=== PATIENT | female | born 1950 ===

== ENCOUNTER 2018-12-19 16:15 | Inpatient (IN) ==
[2018-12-19] MEDS ORDERED: Sod Chloride 0.9% Inj 1,000 ML IV.CONT SCH (16:30)
[2018-12-19] MEDS ORDERED: ALTEPLASE DRIP IV.SIG ONE (16:40)
[2018-12-19] MEDS ORDERED: Alteplase Bolus 9 MG/9 ML Syringe IV.PUSH ONE (16:40)
--- NOTE | 2018-12-19 16:41 | CT ---
EXAM DATE: 12/19/2018 4:36 PM EST AGE/SEX: 68 years / Female INDICATIONS: Stroke alert left side weakness CLINICAL DATA: This is the patient's initial encounter. Patient reports that signs and symptoms have been present for 1 day and indicates a pain score of 0/10. MEDICAL/SURGICAL HISTORY: Dementia. None. RADIATION DOSE: 29.34 CTDI (mGy) COMPARISON: [facility], MR BRAIN W AND W/O CONTRAST, 06/12/2017. . TECHNIQUE: CT of the head without contrast. Using automated exposure control and adjustment of the mA and/or kV according to patient size, radiation dose was kept as low as reasonably achievable to ob tain optimal diagnostic quality images. DICOM format image data is available electronically for revi ew and comparison. FINDINGS: Cerebrum: The ventricles are normal for age. No evidence of midline shift, mass lesion, hemorrhage o r acute infarction. No extraaxial fluid collections are seen. Posterior Fossa: The cerebellum and brainstem are intact. The 4th ventricle is midline. The cerebe llopontine angle is unremarkable. Extracranial: The visualized portion of the orbits is intact. Skull: The calvaria is intact. No evidence of skull fracture. CONCLUSION: 1. No acute intracranial abnormality. Report was called by Dr. Chisholm to Dr. De Oliveira at 1630 at 9:00 PM. Electronically signed by: Jonathan Dickinson MD Board Certified Radiologist 12/19/2018 4:39 PM EST
[2018-12-19 16:42] LABS: Baso # (Auto) 0.1 th/mm3 (0.0-0.2); Eos # (Auto) 0.1 th/mm3 (0.0-0.4); Eos % (Auto) 1.5 % (0.0-4.0); Hematocrit 41.2 % (35.0-46.0); Lymph # (Auto) 2.7 th/mm3 (1.0-4.8); Lymph % (Auto) 45.6 % (9.0-44.0); Mean Corpuscular HGB Conc 33.9 % (32.0-36.0); Mean Corpuscular Hemoglobin 32.5 pg (27.0-34.0); Mean Corpuscular Volume 95.9 fL (80.0-100.0); Mean Platelet Volume 7.7 fL (7.0-11.0); Mono # (Auto) 0.5 th/mm3 (0.0-0.9); Mono % (Auto) 8.2 % (0.0-8.0); Neut # (Auto) 2.6 th/mm3 (1.8-7.7); Neut % (Auto) 43.7 % (16.0-70.0); Platelet Count 428 th/mm3 (150-450); Red Cell Distribution Width 13.6 % (11.6-17.2); White Blood Count 5.9 th/mm3 (4.0-11.0)
[2018-12-19 16:50] LABS: Activated Partial Thrombo Time 25.7 sec (23.4-31.7); Prothrombin Time 10.3 sec (9.8-11.6)
--- NOTE | 2018-12-19 16:51 | CT ---
EXAM DATE: 12/19/2018 4:46 PM EST AGE/SEX: 68 years / Female INDICATIONS: Stroke alert left side weakness CLINICAL DATA: This is the patient's initial encounter. Patient reports that signs and symptoms have been present for 1 day and indicates a pain score of 0/10. MEDICAL/SURGICAL HISTORY: Dementia. None. RADIATION DOSE: 24.26 CTDI (mGy) ; Combined studies COMPARISON: [facility] [place], CT HEAD W/O CONTRAST, 12/19/2018. . TECHNIQUE: Volumetric scanning was performed using a multi-row detector CT scanner during bolus infu guillermo of 73 ml Omnipaque 350 (iohexol) nonionic water-soluble contrast as a cumulative dose for multi ple exams. The data was post processed with a variety of visualization algorithms including full vo lume maximum intensity projection, multi-planar sliding thin slab reformation, curved planar reformat ion, and surface rendering techniques. Using automated exposure control and adjustment of the mA and /or kV according to patient size, radiation dose was kept as low as reasonably achievable to obtain o ptimal diagnostic quality images. DICOM format image data is available electronically for review and comparison. FINDINGS: There is excellent visualization of the major intracranial arteries out to the second-order branch ve ssels. There is no evidence for aneurysm, vessel truncation or stenosis, and no evidence for vascula r malformation. CONCLUSION: 1. Unremarkable head CTA exam. Specifically, no evidence for large vessel occlusion. Findings were called by Dr. Chisholm to Dr. Obando at 1648 PM. Electronically signed by: Jonathan Dickinson MD Board Certified Radiologist 12/19/2018 4:49 PM EST
[2018-12-19 16:58] LABS: Anion Gap 9 meq/L (5-15); Blood Urea Nitrogen 18 mg/dL (7-18); Calcium 9.7 mg/dL (8.5-10.1); Carbon Dioxide 28.6 meq/L (21.0-32.0); Chloride 105 meq/L (98-107); Glomerular Filtration Rate 49 mL/min (>89); Glucose,Random 91 mg/dL (74-106); Potassium 3.8 meq/L (3.5-5.1); Sodium 143 meq/L (136-145)
--- NOTE | 2018-12-19 17:00 | ED ---
HPI General Chief Complaint: Stroke Alert Stated Complaint: Stroke Alert Time Seen by Provider: 12/19/18 16:19 Source: patient and EMS Mode of arrival: EMS Limitations: no limitations History of Present Illness HPI Narrative: Patient is a 68-year-old female who self reports a possible history of dementia and no other medical problems who presents with complaint of left extremity weakness. She laid down for nap at approximately 3:00 and was normal. When she woke up later she noticed that her left upper extremity was weak and called EMS. EMS states that her arm on the left side is not acting the same as the other side and thus they called a stroke alert. Patient denies any changes in vision, speech, swallowing, numbness. Onset (ago): hour(s) Last Observed Normal: 15:00 Location: Reports left arm and left leg History of same: No Severity: moderate Quality: Reports weak Relieving factors: none Exacerbating factors: none Context: Reports sudden onset On Anticoagulants: No Associated symptoms: Reports denies other symptoms Treatments Prior to Arrival: Reports none Related Data Allergies Allergy/AdvReac Type Severity Reaction Status Date / Time No Known Allergies Allergy Verified 12/19/18 16:19 Review of Systems ROS: all other systems reviewed are negative [facility] Medical History Medical History Dementia (Acute) Social History Social History Substance History: No History of Abuse Second Hand Smoke Exposure: No Smoking Status: Former smoker How Often Do You Have a Drink Containing Alcohol: Monthly or less Recent Travel in [facility] within the Last 8 Weeks: No Recent Out of Country Travel within the Last 8 Weeks: No Immunization History Tetanus Immunization: Unsure Exam Narrative Exam Narrative: GENERAL: Well-appearing female in no acute distress, smiling SKIN: Focused skin assessment warm/dry. HEAD: Atraumatic. Normocephalic. EYES: Pupils equal and round. No scleral icterus. No injection or drainage. ENT: No nasal bleeding or discharge. Mucous membranes pink and moist. NECK: Trachea midline. No JVD. CARDIOVASCULAR: Regular rate and rhythm. No murmur appreciated. Intact and equal peripheral pulses. RESPIRATORY: No accessory muscle use. Clear to auscultation. Breath sounds equal bilaterally. GASTROINTESTINAL: Abdomen soft, non-tender, nondistended. Hepatic and splenic margins not palpable. MUSCULOSKELETAL: No obvious deformities. No clubbing. No cyanosis. No edema. NEUROLOGICAL: Awake and alert. No obvious cranial nerve deficits. Normal speech. Normal sensation. No visual field deficit. Extraocular movements intact. No ataxia. Pronator drift to a stroke scale of 2 of the left upper extremity with a drift on the scale of 1 to the left lower extremity. No weakness of the right sided extremities. PSYCHIATRIC: Appropriate mood and affect; insight and judgment normal. Course Initial Documented Vital Signs Temperature 97.7 F 12/19/18 16:19 Pulse Rate 87 12/19/18 16:19 Respiratory Rate 18 12/19/18 16:19 Blood Pressure 161/84 H 12/19/18 16:19 Pulse Oximetry 98 12/19/18 16:19 Last Documented Vital Signs Temperature 97.7 F 12/19/18 16:19 Pulse Rate 78 12/19/18 17:06 Respiratory Rate 18 12/19/18 17:06 Blood Pressure 154/76 H 12/19/18 17:06 Pulse Oximetry 100 12/19/18 17:06 Critical Care Time Critical Care Time: Yes Total Critical Care Time: 40 Attestation: Aggregate critical care time was 40 minutes. Time to perform other separately billable procedures was not included in the critical care time. My time did not include minutes spent treating any other patients simultaneously or on activities that did not directly contribute to the patient's treatment. The services I provided to this patient were to treat and/or prevent clinically significant deterioration that could result in: , disability. I provided critical care services requiring my management, as noted below: Chart data review, documentation time, medication orders and management, vital sign assessments/reviewing monitor data, ordering and reviewing lab tests, ordering and interpreting/reviewing x-rays and diagnostic studies, care of the patient and discussion of the patient with the admitting physicians. NIH Stroke Scale NIH Stroke Scale Level of Consciousness: 0-Alert Orientation Questions: 0-Answers both correct Responds to Commands: 0-Both tasks correct Gaze Eye Movement: 0-Horizontal movement WNL Visual Delgado: 0-No visual field defect Facial Movement: 0-Normal Motor Functions Arm LEFT: 0-No drift Motor Functions Arm RIGHT: 2-Falls before 10 seconds Motor Functions Leg LEFT: 0-No drift Motor Functions Leg RIGHT: 1-Drift before 5 seconds Limb Ataxia: 0-No ataxia Sensory Loss: 0-No sensory loss Best Language: 0-Normal Articulation: 0-Normal Extinction or Inattention Sensory: 0-Absent Total: 3 Medical Decision Making MDM Narrative Medical decision making narrative: Patient is a 68-year-old female who presents with left-sided numbness with last known well approximately 1-1-1/2 hours prior to arrival. NIH stroke scale on arrival was 3. Blood pressure was in the 160s over 80s. Noncontrast CT of the head was unremarkable. CTAs were also unremarkable. I discussed the case with Dr. Obando, neurologist on-call, who recommended TPA. I discussed this with the patient whom agreed. She was given TPA and at approximately 5 PM on reevaluation her symptoms had markedly improved. She will be admitted for further evaluation and management. Medical Screen Exam Complete: Yes Emergency Medical Condition: Yes Differential Diagnosis Differential Diagnosis: Differential diagnosis includes but is not limited to acute stroke, dissection, TIA. Medical Records Medical records reviewed: Yes I reviewed the patient's medical records. Lab Data Lab results reviewed: Yes I reviewed the patient's lab results. Result diagrams: 12/19/18 16:20 12/19/18 16:20 Lab Results 12/19/18 12/19/18 12/19/18 Range/Units 16:20 16:20 16:20 WBC 5.9 (4.0-11.0) th/mm3 RBC 4.30 (4.00-5.30) mil/mm3 Hgb 14.0 (11.6-15.3) gm/dL POC Hgb (Calc) (11.6-15.3) g/dL Hct 41.2 (35.0-46.0) % POC Hct (35-46.0) % MCV 95.9 (80.0-100.0) fL MCH 32.5 (27.0-34.0) pg MCHC 33.9 (32.0-36.0) % RDW 13.6 (11.6-17.2) % Plt Count 428 (150-450) th/mm3 MPV 7.7 (7.0-11.0) fL Neut % (Auto) 43.7 (16.0-70.0) % Lymph % (Auto) 45.6 H (9.0-44.0) % [place] % (Auto) 8.2 H (0.0-8.0) % Eos % (Auto) 1.5 (0.0-4.0) % Baso % (Auto) 1.0 (0.0-2.0) % Neut # (Auto) 2.6 (1.8-7.7) th/mm3 Lymph # (Auto) 2.7 (1.0-4.8) th/mm3 [place] # (Auto) 0.5 (0.0-0.9) th/mm3 Eos # (Auto) 0.1 (0.0-0.4) th/mm3 Baso # (Auto) 0.1 (0.0-0.2) th/mm3 WBC Differential . Differential Comment Auto diff final PT 10.3 (9.8-11.6) sec INR 1.0 Ratio APTT 25.7 (23.4-31.7) sec POC Sodium (137-144) mmol/L Sodium 143 (136-145) meq/L POC Potassium (3.6-5.0) mmol/L Potassium 3.8 (3.5-5.1) meq/L POC Chloride (102-111) mmol/L Chloride 105 (98-107) meq/L Carbon Dioxide 28.6 (21.0-32.0) meq/L Anion Gap 9 (5-15) meq/L POC BUN (5-21) mg/dL BUN 18 (7-18) mg/dL Creatinine 1.12 H (0.50-1.00) mg/dL POC Creatinine (0.6-1.3) mg/dL Estimated GFR 49 L (>89) mL/min POC Glucose (68-110) mg/dL Random Glucose 91 (74-106) mg/dL Calcium 9.7 (8.5-10.1) mg/dL Total Creatine Kinase 44 (26-192) U/L Troponin I Less than 0.02 L (0.02-0.05) ng/mL 12/19/18 Range/Units 16:20 WBC (4.0-11.0) th/mm3 RBC (4.00-5.30) mil/mm3 Hgb (11.6-15.3) gm/dL POC Hgb (Calc) 13.9 (11.6-15.3) g/dL Hct (35.0-46.0) % POC Hct 41.0 (35-46.0) % MCV (80.0-100.0) fL MCH (27.0-34.0) pg MCHC (32.0-36.0) % RDW (11.6-17.2) % Plt Count (150-450) th/mm3 MPV (7.0-11.0) fL Neut % (Auto) (16.0-70.0) % Lymph % (Auto) (9.0-44.0) % [place] % (Auto) (0.0-8.0) % Eos % (Auto) (0.0-4.0) % Baso % (Auto) (0.0-2.0) % Neut # (Auto) (1.8-7.7) th/mm3 Lymph # (Auto) (1.0-4.8) th/mm3 [place] # (Auto) (0.0-0.9) th/mm3 Eos # (Auto) (0.0-0.4) th/mm3 Baso # (Auto) (0.0-0.2) th/mm3 WBC Differential Differential Comment PT (9.8-11.6) sec INR Ratio APTT (23.4-31.7) sec POC Sodium 142 (137-144) mmol/L Sodium (136-145) meq/L POC Potassium 3.7 (3.6-5.0) mmol/L Potassium (3.5-5.1) meq/L POC Chloride 101 L (102-111) mmol/L Chloride (98-107) meq/L Carbon Dioxide (21.0-32.0) meq/L Anion Gap (5-15) meq/L POC BUN 18 (5-21) mg/dL BUN (7-18) mg/dL Creatinine (0.50-1.00) mg/dL POC Creatinine 1.1 (0.6-1.3) mg/dL Estimated GFR (>89) mL/min POC Glucose 91 (68-110) mg/dL Random Glucose (74-106) mg/dL Calcium (8.5-10.1) mg/dL Total Creatine Kinase (26-192) U/L Troponin I (0.02-0.05) ng/mL Imaging Data Attestation: I personally reviewed and interpreted this imaging study as follows : Radiologist's impression: Chest X-Ray 12/19/18 16:19 CONCLUSION: No acute cardiopulmonary disease identified. Head CT 12/19/18 16:19 CONCLUSION: 1. No acute intracranial abnormality. Report was called by Dr. Chisholm to Dr. De Oliveira at 1630 at 9:00 PM. Head CTA 12/19/18 16:27 CONCLUSION: 1. Unremarkable head CTA exam. Specifically, no evidence for large vessel occlusion. Findings were called by Dr. Chisholm to Dr. Obando at 1648 PM. Neck CTA 12/19/18 16:27 CONCLUSION: CTA of the neck within normal limits. Discharge Plan Discharge Disposition Patient Disposition: ED Admit(ED Internal Use Only) Discharge Condition Condition: Fair Discharge Order Discharge Orders: ED Use Only Admit Order (Routine); Ordered 12/19/18 Ordered By: Cira De Oliveira Discharge Details Diagnosis: Acute ischemic stroke Physicians Team ED Provider: Cira De Oliveira Primary Care Provider: Primary Care [facility],No Status ED Status: Pending Admission
--- NOTE | 2018-12-19 17:01 | XR ---
EXAM DATE: 12/19/2018 4:58 PM EST AGE/SEX: 68 years / Female INDICATIONS: Cardiac disease. CLINICAL DATA: This is the patient's initial encounter. Patient reports that signs and symptoms have been present for 1 day and indicates a pain score of Nonresponsive. MEDICAL/SURGICAL HISTORY: Dementia. Non-responsive. COMPARISON: No prior exams available for comparison. FINDINGS: Single AP view of the chest. The lungs are clear. Cardiomediastinal silhouette within norm al limits. No evidence of pleural effusion or pneumothorax. CONCLUSION: No acute cardiopulmonary disease identified. Electronically signed by: Dallas Olivares MD Board Certified Radiologist 12/19/2018 4:59 PM EST
[2018-12-19 17:08] LABS: Creatine Kinase 44 U/L (26-192)
[2018-12-19] MEDS ORDERED: Dextrose 50% in Water 50 ML Vial IV.PUSH PRN (17:25)
--- NOTE | 2018-12-19 17:25 | CT ---
EXAM DATE: 12/19/2018 5:20 PM EST AGE/SEX: 68 years / Female INDICATIONS: Stroke alert left side weakness CLINICAL DATA: This is the patient's initial encounter. Patient reports that signs and symptoms have been present for 1 day and indicates a pain score of 0/10. MEDICAL/SURGICAL HISTORY: Dementia. None. RADIATION DOSE: 24.26 CTDI (mGy) COMPARISON: No prior exams available for comparison. TECHNIQUE: Volumetric scanning was performed using a multirow detector CT scanner during bolus infus ion of 73 ml Omnipaque 350 (iohexol) nonionic water-soluble contrast as a cumulative dose for multip le exams. The data was postprocessed with a variety of visualization algorithms including full-volu me maximum intensity projection, multiplanar sliding thin-slab reformation, curved-planar reformation , and surface-rendering techniques. Using automated exposure control and adjustment of the mA and/or kV according to patient size, radiation dose was kept as low as reasonably achievable to obtain opti mal diagnostic quality images. DICOM format image data is available electronically for review and co mparison. Percent stenosis is calculated using the diameter of the stenotic region over the diameter of the nor mal distal internal carotid artery. FINDINGS: Aortic Arch: There is a three-vessel origin of the great vessels from the aorta. No evidence of ost ial narrowing Right Carotid: The common carotid artery is intact. The carotid bulb has a normal configuration wit hout ulceration or narrowing. The internal carotid artery lumen is smooth without stenosis. The ext ernal carotid artery is intact. Left Carotid: The common carotid artery is intact. The carotid bulb has a normal configuration with out ulceration or narrowing. The internal carotid artery lumen is smooth without stenosis. The exte rnal carotid artery is intact. Vertebrals: Left vertebral artery is dominant.. No stenotic lesions are seen. CONCLUSION: CTA of the neck within normal limits. Electronically signed by: Dallas Olivares MD Board Certified Radiologist 12/19/2018 5:24 PM EST
--- NOTE | 2018-12-19 17:55 | MB ---
cc: Krishan Obando MD, PhD DATE: 12/19/2018 REASON FOR CONSULTATION: Stroke alert. HISTORY OF PRESENT ILLNESS: Ms. Lozano is a 68-year-old female who has a history of dementia, but no other past medical history. She took a nap around 3 p.m. this afternoon, that was when she was last normal. When she awoke about an hour and half before arrival to the ER, she noted left-sided weakness of the arm and leg, presented to the hospital where symptoms persisted. She presented as a stroke alert. She has no prior history of stroke or TIA. She is not on any anticoagulation. PAST MEDICAL HISTORY: Remarkable for dementia. MEDICATIONS AT HOME: Namenda. PHYSICAL EXAMINATION: VITAL SIGNS: Blood pressure 161/84, pulse 87. She is in normal sinus rhythm, respirations 18, temperature is 97.7 degrees Fahrenheit. NEUROLOGIC: Higher cortical function: Alert, oriented x3. Follows commands. Speech is normal with normal fluency. Cranial nerves intact. Motor exam: She is weak in the left arm and left leg, both rated at 4/5 with diminished fine motor skills in the left hand. Sensory: Intact. Reflexes 2+ symmetric with no Babinski. IMAGING DATA: CT of the brain, no acute change. CT angiogram of the head and neck, both within normal limits. No evidence of any large vessel occlusion. LABORATORY DATA: White count 5900, hemoglobin 14, hematocrit 41.7%, platelets 128,000. Sodium is 142, potassium 3.7, chloride 101, CO2 is 28.6, BUN is 18, creatinine 1.12, glucose is 91. GFR is 49. PT 10.3, INR 1, aPTT 25.7. IMPRESSION: 1. Acute right hemisphere stroke. I discussed the case with Dr. De Oliveira. The patient is a candidate for IV tPA. Her NIH stroke scale is 3. TPA has already been started as soon as the CT came back negative for hemorrhage. We will recommend following the post-tPA order sets with close neuro checks, obtaining a post-tPA CT scan of the brain 24 hours after TPA is administered. Avoid any antiplatelets or anticoagulants for 24 hours. Also obtain an MRI of the brain, echocardiogram. Monitor cardiac telemetry. Rule out atrial fibrillation. We will also check a lipid panel. Krishan Oabndo MD, PhD LACIE/merary , 05:07 PM , 05:13 PM
--- NOTE | 2018-12-19 17:55 | P.HPIM ---
History of Present Illness Primary Care Physician: No Primary Care Physician Chief Complaint: stroke alert, left arm weakness History of Present Illness: Patient is a 68-year-old female who self reports a possible history of dementia and no other medical problems who presents with complaint of left extremity weakness. She laid down for nap at approximately 3: 00 and was normal. When she woke up later she noticed that her left upper extremity was weak and called EMS. EMS states that her arm on the left side is not acting the same as the other side and thus they called a stroke alert. Patient denies any changes in vision, speech, swallowing, numbness. at bedside also witnessed episode of weakness and says patient was not able to move her left hand at home. Patient came as stroke alert. Neurology consulted. Patient had TPA administered. Improved significantly after TPA. Normal speech and slight weakness and mild pronator drift on left hand. Inpatient Certification Inpatient Certification: I certify that the inpatient services were ordered in accordance with Medicare regulations governing the order. This includes certification that hospital inpatient services are reasonable and necessary and in the case of services not specified as inpatient-only under 42 CFR 419.22(n), that they are appropriately provided as inpatient services in accordance to with the 2-midnight benchmark under 43 CFR 412.3(e) Estimated Total Length of Stay (Days): 3 Plans for Post Hospital Care: Home Review of Systems Review of Systems: all other systems reviewed are negative [facility] Medical History Medical History Dementia (Acute) H/O: hysterectomy (Acute) Family History Family History Other ETOH abuse Social History Social History Substance History: No History of Abuse Second Hand Smoke Exposure: No Smoking Status: Former smoker How Often Do You Have a Drink Containing Alcohol: Monthly or less Recent Travel in [facility] within the Last 8 Weeks: No Recent Out of Country Travel within the Last 8 Weeks: No Immunization History Tetanus Immunization: Unsure Medications and Allergies Allergies Allergy/AdvReac Type Severity Reaction Status Date / Time No Known Allergies Allergy Verified 12/19/18 16:19 Active Medications: Active Medications Dextrose (D50w Vial) 50 ml IV.PUSH UNSCH PRN PRN Reason: PER HYPOGLYCEMIA PROTOCOL Glucagon (Glucagon Inj) 1 mg OTHER UNSCH PRN PRN Reason: for Hypoglycemia Protocol Sodium Chloride (Ns Inj) 1,000 mls @ 70 mls/hr IV.CONT .[id number] [facility] Stop: 12/20/18 06:47 Last Admin: 12/19/18 16:30 Dose: 70 mls/hr Pravastatin Sodium (Pravachol) 40 mg PO HS KISHAN Sodium Chloride (Ns Flush) 2 ml IV.FLUSH PRN PRN PRN Reason: FLUSH AFTER USING IV ACCESS Sodium Chloride (Ns Flush) 2 ml IV.FLUSH BID KISHAN Sodium Chloride (Ns Flush) 2 ml IV.FLUSH PRN PRN PRN Reason: FLUSH AFTER USING IV ACCESS Physical Exam Vital signs: Vital Signs 12/19/18 16:19 12/19/18 16:37 12/19/18 16:52 Temperature 97.7 F Pulse Rate 80 88 95 H Respiratory Rate 18 16 16 Blood Pressure 161/84 H 142/84 H 159/71 H Pulse Oximetry 100 100 100 12/19/18 17:06 Temperature Pulse Rate 78 Respiratory Rate 18 Blood Pressure 154/76 H Pulse Oximetry 100 Intake & Output 12/18/18 12/19/18 12/19/18 18:59 06:59 18:59 Weight 60.2 kg Narrative: GENERAL: 68 yo female, well nourished, well developed patient appears in nad. SKIN: Warm and dry. HEAD: Atraumatic. Normocephalic. EYES: Pupils equal and round. No scleral icterus. No injection or drainage. ENT: No nasal bleeding or discharge. Mucous membranes pink and moist. NECK: Trachea midline. No JVD. CARDIOVASCULAR: Regular rate and rhythm. RESPIRATORY: No accessory muscle use. Clear to auscultation. Breath sounds equal bilaterally. GASTROINTESTINAL: Abdomen soft, non-tender, nondistended. Hepatic and splenic margins not palpable. MUSCULOSKELETAL: Extremities without clubbing, cyanosis, or edema. No obvious deformities. NEUROLOGICAL: Awake and alert. No obvious cranial nerve deficits. Motor grossly within normal limits. Left arm pronator drift. Normal speech. PSYCHIATRIC: Appropriate mood and affect; insight and judgment normal. Results Labs CBC & Chem 7: 12/19/18 16:20 12/19/18 16:20 Imaging Impressions Chest X-Ray 12/19/18 16:19 CONCLUSION: No acute cardiopulmonary disease identified. Head CT 12/19/18 16:19 CONCLUSION: 1. No acute intracranial abnormality. Report was called by Dr. Chisholm to Dr. De Oliveira at 1630 at 9:00 PM. Head CTA 12/19/18 16:27 CONCLUSION: 1. Unremarkable head CTA exam. Specifically, no evidence for large vessel occlusion. Findings were called by Dr. Chisholm to Dr. Obando at 1648 PM. Neck CTA 12/19/18 16:27 CONCLUSION: CTA of the neck within normal limits. Caprini VTE Risk Assessment Caprini VTE Risk Assessment: Moderate/High Risk (score >= 2) Caprini Risk Assessment Model: Point Value = 1 Point Value = 2 Point Value = 3 Point Value = 5 Age 41-60 Minor surgery BMI > 25 kg/m2 Swollen legs Varicose veins or History of unexplained or recurrent spontaneous Oral contraceptives or hormone replacement Sepsis (< 1 month) Serious lung disease, including pneumonia (< 1 month) Abnormal pulmonary function Acute myocardial infarction Congestive heart failure (< 1 month) History of inflammatory bowel disease Medical patient at bed rest Age 61-74 Arthroscopic surgery Major open surgery (> 45 min) Laparoscopic surgery (> 45 min) Malignancy Confined to bed (> 72 hours) Immobilizing plaster cast Central venous access Age >= 75 History of VTE Family history of VTE Factor V Leiden Prothrombin [id number] Lupus anticoagulant Anticardiolipin antibodies Elevated serum homocysteine Heparin-induced thrombocytopenia Other congenital or acquired thrombophilia Stroke (< 1 month) Elective arthroplasty Hip, pelvis, or leg fracture Acute spinal cord injury (< 1 month) Prophylaxis Regimen: Total Risk Factor Score Risk Level Prophylaxis Regimen 0-1 Low Early ambulation 2 Moderate Order ONE of the following: *Sequential Compression Device (SCD) *Heparin 5000 units SQ BID 3-4 Higher Order ONE of the following medications: *Heparin 5000 units SQ TID *Enoxaparin/Lovenox 40 mg SQ daily (WT < 150 kg, CrCl > 30 mL/min) *Enoxaparin/Lovenox 30 mg SQ daily (WT < 150 kg, CrCl > 10-29 mL/min) *Enoxaparin/Lovenox 30 mg SQ BID (WT < 150 kg, CrCl > 30 mL/min) AND/OR *Sequential Compression Device (SCD) 5 or more Highest Order ONE of the following medications: *Heparin 5000 units SQ TID (Preferred with Epidurals) *Enoxaparin/Lovenox 40 mg SQ daily (WT < 150 kg, CrCl > 30 mL/min) *Enoxaparin/Lovenox 30 mg SQ daily (WT < 150 kg, CrCl > 10-29 mL/min) *Enoxaparin/Lovenox 30 mg SQ BID (WT < 150 kg, CrCl > 30 mL/min) AND *Sequential Compression Device (SCD) Assessment and Plan Plan Patient is a 68-year-old female with h/o dementia, who presents with left-sided numbness with last known well approximately 1-1-1/2 hours prior to arrival. NIH stroke scale on arrival was 3. Blood pressure was in the 160s over 80s. Noncontrast CT of the head was unremarkable. CTAs were also unremarkable. Neurology was consulted, Dr. Obando, who recommended TPA. Patient agreed and she was given TPA and at approximately 5 PM on reevaluation her symptoms had markedly improved. She is admitted for further evaluation and management. CVA. The patient presented with left arm weakness and left pronator drift. H/o dementia on namenda , doesn't know the dose will do reconcile meds restart home meds CT head and CTA neck unremarkable Dr Obando neuro recommended TPA, patient received TPA with marked improvement in symptoms thereafter Admit to the floor for close eval and observation Allow permissive HTN, neurochecks Q2 hrs, monitor closely Monitor on tele Check a1c, lipid profile ASA and statin per neuro recommendations restart BP meds Restart ilan meds , do reconcile home meds DVT ppx scd/teds, received TPA hold on chemical ppx for now Discussed Condition With: patient, family- at bedside, nurse
[2018-12-19 18:13] LABS: Bilirubin,Urine Negative (Negative); Clarity,Urine Clear (Clear); Color,Urine Straw (Yellw/Straw); Glucose,Urine (UA) Negative (Negative); Leukocyte Esterase,Urine Trace (Negative); Nitrite,Urine Negative (Negative); Specific Gravity,Urine 1.018 (1.002-1.035); Squamous Epithelial Cell,Urine <1 /hpf (0-5)
[2018-12-19 18:25] LABS: Chol/HDL Ratio 2.84 Ratio; HDL Cholesterol 73.8 mg/dL (40.0-60.0)
[2018-12-19] MEDS ORDERED: Gadobutrol PF 7.5 MMOL/7.5 ML Vial (for RAD) IV.SIG ONE (21:54)
--- NOTE | 2018-12-19 22:04 | MR ---
EXAM DATE: 12/19/2018 9:56 PM EST AGE/SEX: 68 years / Female INDICATIONS: CVA. Left side weakness. CLINICAL DATA: This is the patient's initial encounter. Patient reports that signs and symptoms have been present for 1 day and indicates a pain score of 0/10. MEDICAL/SURGICAL HISTORY: Dementia. Hysterectomy. COMPARISON: [facility], MR BRAIN W AND W/O CONTRAST, 06/12/2017. . TECHNIQUE: Multiplanar, multisequence examination of the brain was performed without and with 5 ml Ga davist (gadobutrol) contrast as a single exam dose. FINDINGS: Cerebrum: The ventricles are normal for age. No evidence of midline shift, mass lesion, hemorrhage or acute infarction. No extraaxial fluid collections are seen. The pituitary gland and suprasellar cistern are normal in configuration. White Matter: No significant signal abnormalities are seen in the white matter. Posterior Fossa: The cerebellum and brainstem are intact. The 4th ventricle is midline. The cerebel lopontine angle is unremarkable. The cerebellar tonsils are normal in position. Diffusion Imaging: There is a 9 mm focus of restricted diffusion involving the centrum semiovale bow el on the right. This area shows loss of signal on the ADC map.. Extracranial: The visualized portions of the orbits and paranasal sinuses are unremarkable. Post Contrast: No abnormal areas of parenchymal or dural enhancement. No evidence of blood-brain ba rrier breakdown. CONCLUSION: 1. Small acute lacunar infarction involving the centrum semiovale bowel on the right. Electronically signed by: Tylor Sanders MD Board Certified Radiologist 12/19/2018 10:03 PM EST
[2018-12-20 06:31] LABS: Chol/HDL Ratio 2.63 Ratio; HDL Cholesterol 74.3 mg/dL (40.0-60.0)
--- NOTE | 2018-12-20 10:04 | P.PNIM ---
Subjective Interval history: In bed appears in nad. Denies chest pain or sob, no fever or chills. Patient with headache. Motor deficit imprpved significantly. Not having much appetite, passed swallow eval Physical Exam Vital signs: Vital Signs 12/19/18 16:19 12/19/18 16:37 12/19/18 16:52 Temperature 97.7 F Pulse Rate 80 88 95 H Respiratory Rate 18 16 16 Blood Pressure 161/84 H 142/84 H 159/71 H Pulse Oximetry 100 100 100 12/19/18 17:06 12/19/18 17:16 12/19/18 17:47 Temperature Pulse Rate 78 Respiratory Rate 18 Blood Pressure 154/76 H Pulse Oximetry 100 99 97 12/19/18 18:19 12/19/18 18:21 12/19/18 18:22 Temperature Pulse Rate Respiratory Rate Blood Pressure 154/81 H Pulse Oximetry 99 99 12/19/18 18:59 12/19/18 19:00 12/19/18 19:15 Temperature 98.6 F Pulse Rate 83 87 83 Respiratory Rate 20 18 18 Blood Pressure 132/85 128/79 Pulse Oximetry 98 98 97 12/19/18 19:30 12/19/18 19:45 12/19/18 20:00 Temperature 97.8 F Pulse Rate 79 76 71 Respiratory Rate 18 20 16 Blood Pressure 128/75 132/79 127/79 Pulse Oximetry 97 98 98 12/19/18 20:15 12/19/18 20:21 12/19/18 20:30 Temperature Pulse Rate 72 72 Respiratory Rate 26 H 23 Blood Pressure 150/72 H 137/81 Pulse Oximetry 99 98 99 12/19/18 20:45 12/19/18 21:00 12/19/18 21:15 Temperature Pulse Rate 75 82 72 Respiratory Rate 32 H 37 H 33 H Blood Pressure 141/85 H 132/74 127/74 Pulse Oximetry 98 98 96 12/19/18 22:11 12/19/18 22:17 12/19/18 22:40 Temperature Pulse Rate 71 72 74 Respiratory Rate 15 17 20 Blood Pressure 139/86 149/85 H Pulse Oximetry 96 12/19/18 23:00 12/19/18 23:10 12/19/18 23:40 Temperature Pulse Rate 74 73 74 Respiratory Rate 24 18 17 Blood Pressure 137/85 138/80 Pulse Oximetry 96 95 96 12/20/18 00:00 12/20/18 00:10 12/20/18 00:40 Temperature Pulse Rate 76 71 77 Respiratory Rate 16 22 15 Blood Pressure 150/75 H 140/84 Pulse Oximetry 97 96 96 12/20/18 01:00 12/20/18 01:10 12/20/18 01:40 Temperature Pulse Rate 67 68 66 Respiratory Rate 17 14 17 Blood Pressure 130/82 154/75 H Pulse Oximetry 96 96 96 12/20/18 02:00 12/20/18 02:10 12/20/18 02:40 Temperature Pulse Rate 67 66 68 Respiratory Rate 16 15 17 Blood Pressure 132/76 157/75 H Pulse Oximetry 97 98 97 12/20/18 03:00 12/20/18 03:10 12/20/18 03:40 Temperature Pulse Rate 74 67 66 Respiratory Rate 15 30 H 14 Blood Pressure 141/71 H 152/76 H Pulse Oximetry 98 96 96 12/20/18 04:00 12/20/18 04:10 12/20/18 04:40 Temperature 98.5 F Pulse Rate 69 68 80 Respiratory Rate 24 14 37 H Blood Pressure 154/84 H 150/86 H Pulse Oximetry 97 97 97 12/20/18 05:00 12/20/18 05:10 12/20/18 05:40 Temperature Pulse Rate 71 70 72 Respiratory Rate 14 18 13 Blood Pressure 153/85 H 158/82 H Pulse Oximetry 96 97 96 12/20/18 06:00 12/20/18 06:10 12/20/18 07:00 Temperature Pulse Rate 76 75 81 Respiratory Rate 14 14 20 Blood Pressure 149/73 H Pulse Oximetry 96 95 96 12/20/18 07:10 12/20/18 07:19 12/20/18 07:40 Temperature 98.9 F Pulse Rate 85 87 74 Respiratory Rate 20 20 22 Blood Pressure 185/93 H 152/74 H 157/74 H Pulse Oximetry 96 96 96 12/20/18 07:41 12/20/18 08:00 12/20/18 08:10 Temperature Pulse Rate 80 82 Respiratory Rate 20 20 Blood Pressure 159/92 H Pulse Oximetry 96 97 98 12/20/18 09:00 12/20/18 09:01 Temperature Pulse Rate 76 76 Respiratory Rate 20 20 Blood Pressure 142/88 H Pulse Oximetry 98 98 Intake & Output 12/19/18 12/20/18 12/20/18 18:59 06:59 18:59 Intake Total 49 1000 / 1000 Balance 49 49 1000 / 1000 Weight 60.2 kg 60.18 kg Intake: IV 49 1000 / 1000 NS Inj 1,000 ML @ 70 mls/hr IV. 1000 / 1000 CONT .[id number] KISHAN Rx#:[id number] Activase Drip 49 MG In Bag/ Syringe 1 EACH @ 49 mls/hr IV. SIG ONCE ONE Rx#:[id number] Other: Date of Last Bowel Movement 12/19/18 Weight On Admission 60.2 kg Narrative: GENERAL: 68 yo female, well nourished, well developed patient appears in nad. CARDIOVASCULAR: Regular rate and rhythm. RESPIRATORY: No accessory muscle use. Clear to auscultation. Breath sounds equal bilaterally. GASTROINTESTINAL: Abdomen soft, non-tender, nondistended. Hepatic and splenic margins not palpable. MUSCULOSKELETAL: Extremities without clubbing, cyanosis, or edema. No obvious deformities. NEUROLOGICAL: Awake and alert. No obvious cranial nerve deficits. Motor grossly within normal limits. Left arm pronator drift. Normal speech. PSYCHIATRIC: Appropriate mood and affect; insight and judgment normal. Results Labs CBC & Chem 7: 12/19/18 16:20 12/19/18 16:20 Imaging Imaging: Impressions Head MRI 12/19/18 00:00 CONCLUSION: 1. Small acute lacunar infarction involving the centrum semiovale bowel on the right. Chest X-Ray 12/19/18 16:19 CONCLUSION: No acute cardiopulmonary disease identified. Head CT 12/19/18 16:19 CONCLUSION: 1. No acute intracranial abnormality. Report was called by Dr. Chisholm to Dr. De Oliveira at 1630 at 9:00 PM. Head CTA 12/19/18 16:27 CONCLUSION: 1. Unremarkable head CTA exam. Specifically, no evidence for large vessel occlusion. Findings were called by Dr. Chisholm to Dr. Obando at 1648 PM. Neck CTA 12/19/18 16:27 CONCLUSION: CTA of the neck within normal limits. Assessment and Plan Plan Patient is a 68-year-old female with h/o dementia, who presents with left-sided numbness with last known well approximately 1-1-1/2 hours prior to arrival. NIH stroke scale on arrival was 3. Blood pressure was in the 160s over 80s. Noncontrast CT of the head was unremarkable. CTAs were also unremarkable. Neurology was consulted, Dr. Obando, who recommended TPA. Patient agreed and she was given TPA and at approximately 5 PM on reevaluation her symptoms had markedly improved. She is admitted for further evaluation and management. CVA. The patient presented with left arm weakness and left pronator drift. H/o dementia on namenda , restarted CT head and CTA neck unremarkable Dr Obando neuro recommended TPA, patient received TPA with marked improvement in symptoms thereafter Admit to the floor for close eval and observation Allow permissive HTN, neurochecks Q2 hrs, monitor closely Monitor on tele Check a1c, lipid profile ASA and statin per neuro recommendations restart BP meds Restart ilan meds , do reconcile home meds Start statin , start ASA when cleared by neuro Headache tylenol prn, avoid NSAIDS DVT ppx scd/teds, received TPA hold on chemical ppx for now start per neuro recs Discussed with the patient, family at bedside, nurse Progress Note: Quality VTE Deep Vein Thrombosis/Pulmonary Embolism Present on Admission: No
[2018-12-20] MEDS: Acetaminophen 325 MG Tablet PO PRN ×2 (10:37→20:00)
--- NOTE | 2018-12-20 11:21 | ECG ---
Date Performed: 12/19/2018 Time Performed: 16:52:57 PTAGE: 68 years EKG: Sinus rhythm NORMAL ECG NO PREVIOUS TRACING DOCTOR: Rafa Blanca Interpretating Date/Time 12/20/2018 11:18:40
--- NOTE | 2018-12-20 15:52 | ECHRPT ---
Indication: CVA/TIA CONCLUSIONS Normal left ventricular size. Wall thickness is normal. The left ventricular systolic function is grossly normal on limited imaging. Cfhli-cw-yzrt mitral valve regurgitation. Aortic valve sclerosis is present. Iciz-bt-yplawqiv aortic valve regurgitation. The estimated pulmonary arterial pressure is 37.2 mmHg. There is moderate tricuspid regurgitation. BP: / HR: Rhythm: Sinus MEASUREMENTS (Male / Female) Normal Values Technical Quality:Fair 2D ECHO LV Diastolic Diameter PLAX 4.3 cm 4.2 - 5.9 / 3.9 - 5.3 cm LV Systolic Diameter PLAX 2.5 cm IVS Diastolic Thickness 0.7 cm 0.6 - 1.0 / 0.6 - 0.9 cm LVPW Diastolic Thickness 0.7 cm 0.6 - 1.0 / 0.6 - 0.9 cm LV Relative Wall Thickness 0.3 RV Internal Dim ED PLAX 2.5 cm LVOT Diameter 2.2 cm Aortic Root Diameter 3.6 cm LA Systolic Diameter LX 2.5 cm 3.0 - 4.0 / 2.7 - 3.8 cm M-MODE AV Cusp Separation MM 1.5 cm DOPPLER AI Peak Velocity 489.0 cm/s AI Peak Gradient 95.6 mmHg AI Pressure Half Time 484.0 ms LVOT Peak Velocity 113.0 cm/s LVOT Peak Gradient 5.1 mmHg LVOT Velocity Time Integral 17.2 cm Mitral E Point Velocity 55.3 cm/s Mitral A Point Velocity 78.5 cm/s Mitral E to A Ratio 0.7 LV E' Lateral Velocity 8.9 cm/s Mitral E to LV E' Lateral Ratio 6.2 LV E' Septal Velocity 8.3 cm/s Mitral E to LV E' Septal Ratio 6.7 TR Peak Velocity 261.0 cm/s TR Peak Gradient 27.2 mmHg Right Atrial Pressure 10.0 mmHg Pulmonary Artery Systolic Pressu 37.2 mmHg Right Ventricular Systolic Press 37.2 mmHg PV Peak Velocity 69.9 cm/s PV Peak Gradient 2.0 mmHg FINDINGS LEFT VENTRICLE Normal left ventricular size. Wall thickness is normal. The left ventricular systolic function is grossly normal on limited imaging. RIGHT VENTRICLE Normal right ventricular size and systolic function. LEFT ATRIUM The left atrial size is normal. RIGHT ATRIUM The right atrial size is normal. ATRIAL SEPTUM Normal atrial septal thickness without atrial level shunting by limited color doppler interrogation. AORTA The aortic root and proximal ascending aorta are normal in size on limited imaging. MITRAL VALVE Idvoz-mw-eade mitral valve regurgitation. AORTIC VALVE Aortic valve sclerosis is present. Jpwf-hy-wiywqcit aortic valve regurgitation. TRICUSPID VALVE The estimated pulmonary arterial pressure is 37.2 mmHg. There is moderate tricuspid regurgitation. PULMONARY VALVE No pulmonary valve regurgitation or stenosis. VESSELS The inferior vena cava is normal in size. PERICARDIUM No pericardial effusion. John Smith MD, FACC (Electronically Signed) Final Date:20 December 2018 15:51
[2018-12-20 16:12] LABS: Hemoglobin A1c 5.6 % (4.3-6.0)
--- NOTE | 2018-12-20 17:36 | CT ---
EXAM DATE: 12/20/2018 5:32 PM EST AGE/SEX: 68 years / Female INDICATIONS: Post TPA stroke alert. CLINICAL DATA: This is the patient's subsequent encounter. Patient reports that signs and symptoms h ave been present for 2 days and indicates a pain score of 4/10. MEDICAL/SURGICAL HISTORY: None. Hysterectomy. RADIATION DOSE: 45.70 CTDI (mGy) COMPAR[place]: [facility] [place], [place]19/2018. [facility] [place] & W/O CONTRAST, 12/19/2018. . TECHNIQUE: CT of the head without contrast. Using automated exposure control and adjustment of the mA and/or kV according to patient size, radiation dose was kept as low as reasonably achievable to ob tain optimal diagnostic quality images. DICOM format image data is available electronically for revi ew and comparison. FINDINGS: Cerebrum: No evidence of acute hemorrhage. There is some hypodensity in the anterior sylvian region with loss of delineation between ballesteros and white matter. There is no restricted diffusion in this area on yesterday's MR. No evidence of mass effect. No extra-axial fluid. Posterior Fossa: The cerebellum and brainstem are intact. The 4th ventricle is midline. The cerebe llopontine angle is unremarkable. Extracranial: The visualized portion of the orbits is intact. Skull: The calvaria is intact. No evidence of skull fracture. CONCLUSION: 1. No evidence of acute hemorrhage. 2. Interval development of mild hypodensity with loss of ballesteros/white matter differentiation in the an terior right sylvian region, possibly an evolving infarction. . Electronically signed by: Tylor Juarez MD Board Certified Radiologist 12/20/2018 5:35 PM EST
--- NOTE | 2018-12-20 18:23 | P.PNNEU ---
Subjective Subjective Comments: pt reports improvement in left sided strength back to normal Active Medications: Active Medications Acetaminophen (Tylenol) 650 mg PO Q4H PRN PRN Reason: fever/headache Last Admin: 12/20/18 10:37 Dose: 650 mg Aspirin (Aspirin) 325 mg PO DAILY [facility] Dextrose (D50w Vial) 50 ml IV.PUSH UNSCH PRN PRN Reason: PER HYPOGLYCEMIA PROTOCOL Enalaprilat (Vasotec Inj) 2.5 mg IV.PUSH Q6H PRN PRN Reason: SBP>180, DBP>110 Glucagon (Glucagon Inj) 1 mg OTHER UNSCH PRN PRN Reason: for Hypoglycemia Protocol Memantine (Namenda) 10 mg PO BID [facility] Last Admin: 12/20/18 11:30 Dose: 10 mg Pravastatin Sodium (Pravachol) 40 mg PO HS [facility] Last Admin: 12/19/18 20:03 Dose: 40 mg Sodium Chloride (Ns Flush) 2 ml IV.FLUSH PRN PRN PRN Reason: FLUSH AFTER USING IV ACCESS Sodium Chloride (Ns Flush) 2 ml IV.FLUSH BID [facility] Last Admin: 12/20/18 09:11 Dose: Not Given Sodium Chloride (Ns Flush) 2 ml IV.FLUSH PRN PRN PRN Reason: FLUSH AFTER USING IV ACCESS Allergies/Adverse Reactions: Allergies Allergy/AdvReac Type Severity Reaction Status Date / Time No Known Allergies Allergy Verified 12/19/18 16:19 Physical Exam Vital signs: Vital Signs 12/19/18 18:21 12/19/18 18:22 12/19/18 18:59 Temperature 98.6 F Pulse Rate 83 Respiratory Rate 20 Blood Pressure 154/81 H 132/85 Pulse Oximetry 99 98 12/19/18 19:00 12/19/18 19:15 12/19/18 19:30 Temperature Pulse Rate 87 83 79 Respiratory Rate 18 18 18 Blood Pressure 128/79 128/75 Pulse Oximetry 98 97 97 12/19/18 19:45 12/19/18 20:00 12/19/18 20:15 Temperature 97.8 F Pulse Rate 76 71 72 Respiratory Rate 20 16 26 H Blood Pressure 132/79 127/79 150/72 H Pulse Oximetry 98 98 99 12/19/18 20:21 12/19/18 20:30 12/19/18 20:45 Temperature Pulse Rate 72 75 Respiratory Rate 23 32 H Blood Pressure 137/81 141/85 H Pulse Oximetry 98 99 98 12/19/18 21:00 12/19/18 21:15 12/19/18 22:11 Temperature Pulse Rate 82 72 71 Respiratory Rate 37 H 33 H 15 Blood Pressure 132/74 127/74 Pulse Oximetry 98 96 12/19/18 22:17 12/19/18 22:40 12/19/18 23:00 Temperature Pulse Rate 72 74 74 Respiratory Rate 17 20 24 Blood Pressure 139/86 149/85 H Pulse Oximetry 96 96 12/19/18 23:10 12/19/18 23:40 12/20/18 00:00 Temperature Pulse Rate 73 74 76 Respiratory Rate 18 17 16 Blood Pressure 137/85 138/80 Pulse Oximetry 95 96 97 12/20/18 00:10 12/20/18 00:40 12/20/18 01:00 Temperature Pulse Rate 71 77 67 Respiratory Rate 22 15 17 Blood Pressure 150/75 H 140/84 Pulse Oximetry 96 96 96 12/20/18 01:10 12/20/18 01:40 12/20/18 02:00 Temperature Pulse Rate 68 66 67 Respiratory Rate 14 17 16 Blood Pressure 130/82 154/75 H Pulse Oximetry 96 96 97 12/20/18 02:10 12/20/18 02:40 12/20/18 03:00 Temperature Pulse Rate 66 68 74 Respiratory Rate 15 17 15 Blood Pressure 132/76 157/75 H Pulse Oximetry 98 97 98 12/20/18 03:10 12/20/18 03:40 12/20/18 04:00 Temperature 98.5 F Pulse Rate 67 66 69 Respiratory Rate 30 H 14 24 Blood Pressure 141/71 H 152/76 H Pulse Oximetry 96 96 97 12/20/18 04:10 12/20/18 04:40 12/20/18 05:00 Temperature Pulse Rate 68 80 71 Respiratory Rate 14 37 H 14 Blood Pressure 154/84 H 150/86 H Pulse Oximetry 97 97 96 12/20/18 05:10 12/20/18 05:40 12/20/18 06:00 Temperature Pulse Rate 70 72 76 Respiratory Rate 18 13 14 Blood Pressure 153/85 H 158/82 H Pulse Oximetry 97 96 96 12/20/18 06:10 12/20/18 07:00 12/20/18 07:10 Temperature Pulse Rate 75 81 85 Respiratory Rate 14 20 20 Blood Pressure 149/73 H 185/93 H Pulse Oximetry 95 96 96 12/20/18 07:19 12/20/18 07:40 12/20/18 07:41 Temperature 98.9 F Pulse Rate 87 74 Respiratory Rate 20 22 Blood Pressure 152/74 H 157/74 H Pulse Oximetry 96 96 96 12/20/18 08:00 12/20/18 08:10 12/20/18 09:00 Temperature Pulse Rate 80 82 76 Respiratory Rate 20 20 20 Blood Pressure 159/92 H Pulse Oximetry 97 98 98 12/20/18 09:01 12/20/18 09:40 12/20/18 09:55 Temperature Pulse Rate 76 75 Respiratory Rate 20 20 Blood Pressure 142/88 H 152/87 H Pulse Oximetry 98 97 12/20/18 10:00 12/20/18 10:01 12/20/18 11:00 Temperature Pulse Rate 83 84 77 Respiratory Rate 20 20 17 Blood Pressure 132/93 H Pulse Oximetry 96 96 94 L 12/20/18 11:01 12/20/18 12:00 12/20/18 12:01 Temperature 98.1 F Pulse Rate 78 77 81 Respiratory Rate 18 18 18 Blood Pressure 137/86 156/91 H Pulse Oximetry 95 96 97 12/20/18 13:00 12/20/18 13:01 12/20/18 14:00 Temperature Pulse Rate 81 77 82 Respiratory Rate 18 20 20 Blood Pressure 147/88 H Pulse Oximetry 98 98 96 12/20/18 14:01 12/20/18 15:00 12/20/18 15:01 Temperature Pulse Rate 81 71 74 Respiratory Rate 20 14 14 Blood Pressure 161/89 H 161/83 H Pulse Oximetry 96 100 95 12/20/18 16:00 12/20/18 16:01 12/20/18 17:00 Temperature 98.3 F Pulse Rate 75 76 78 Respiratory Rate 19 16 20 Blood Pressure 145/85 H Pulse Oximetry 95 95 95 12/20/18 17:01 12/20/18 18:00 Temperature Pulse Rate 97 H 79 Respiratory Rate 20 16 Blood Pressure 156/94 H 138/91 H Pulse Oximetry 95 97 Intake & Output 12/19/18 12/20/18 12/20/18 18:59 06:59 18:59 Intake Total 49 / 49 1350 / 1350 Output Total 300 / 300 Balance 1050 / 1050 Weight 60.2 kg 60.18 kg Intake: IV 1000 / 1000 NS Inj 1,000 ML @ 70 mls/hr IV. 1000 / 1000 CONT .[id number] [facility] Rx#:[id number] Activase Drip 49 MG In Bag/ Syringe 1 EACH @ 49 mls/hr IV. SIG ONCE ONE Rx#:[id number] Oral 350 / 350 Output: Emesis 300 / 300 Other: # Voids 4 Date of Last Bowel Movement 12/20/18 # Bowel Movements 1 Weight On Admission 60.2 kg - Routine Neurological Exam alert, speech normal CN 2-12 normal MOTOR 5/5 BUE and BLE. Normal fine motor . No drift. Sensory-normal Objective Radiology Results: CT brain 24 hr post TPA--no evidence for hemorrhage. Small area of hypodensity right hemisphere MRI --small cva right hemisphere ECHo--no embolic source identified. Laboratory Results - last 24 hr 12/19/18 12/19/18 12/19/18 16:20 17:22 19:55 POC Glucose 93 Triglycerides 155 H Cholesterol 210 H LDL Cholesterol, Calc 105 H HDL Cholesterol 73.8 H Cholesterol/HDL Ratio 2.84 Urine Color Straw Urine Clarity Clear Urine pH 8.0 Ur Specific [place] 1.018 Urine Protein Negative Urine Glucose (UA) Negative Urine Ketones Negative Urine Occult Blood Negative Urine Nitrate Negative Urine Bilirubin Negative Urine Urobilinogen Less than 2 Ur Leukocyte Esterase Trace H Urine RBC Less than 1 Urine WBC 1 Ur Squamous Epith Cells <1 Micro UA Comment Culture not ind Urine Culture Comments Culture not ind 12/20/18 12/20/18 12/20/18 05:13 08:05 17:03 POC Glucose 84 104 Triglycerides 103 Cholesterol 196 LDL Cholesterol, Calc 101 H HDL Cholesterol 74.3 H Cholesterol/HDL Ratio 2.63 Urine Color Urine Clarity Urine pH Ur Specific [place] Urine Protein Urine Glucose (UA) Urine Ketones Urine Occult Blood Urine Nitrate Urine Bilirubin Urine Urobilinogen Ur Leukocyte Esterase Urine RBC Urine WBC Ur Squamous Epith Cells Micro UA Comment Urine Culture Comments Review/Management - Review/Management Plan: start aspirin 325 mg daily statin 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
[2018-12-20] MEDS: Aspirin 325 MG Tablet PO SCH (18:34)
[2018-12-21] MEDS: Aspirin 325 MG Tablet PO SCH (08:16)
[2018-12-21] MEDS: Acetaminophen 325 MG Tablet PO PRN ×3 (08:18→18:37)
[2018-12-21 12:22] LABS: Baso % (Auto) 0.6 % (0.0-2.0); Eos % (Auto) 0.6 % (0.0-4.0); Hematocrit 41.2 % (35.0-46.0); Hemoglobin 14.1 gm/dL (11.6-15.3); Lymph # (Auto) 1.7 th/mm3 (1.0-4.8); Lymph % (Auto) 22.5 % (9.0-44.0); Mean Corpuscular HGB Conc 34.1 % (32.0-36.0); Mean Corpuscular Hemoglobin 32.8 pg (27.0-34.0); Mean Corpuscular Volume 96.2 fL (80.0-100.0); Mean Platelet Volume 7.7 fL (7.0-11.0); Mono # (Auto) 0.5 th/mm3 (0.0-0.9); Mono % (Auto) 6.6 % (0.0-8.0); Neut # (Auto) 5.1 th/mm3 (1.8-7.7); Neut % (Auto) 69.7 % (16.0-70.0); Platelet Count 336 th/mm3 (150-450); Red Blood Count 4.29 mil/mm3 (4.00-5.30); Red Cell Distribution Width 13.4 % (11.6-17.2); White Blood Count 7.4 th/mm3 (4.0-11.0)
--- NOTE | 2018-12-21 16:20 | P.PNIM ---
Subjective Interval history: In nad. More awake and alert. No new motor or sensory deficit. She is imprpving with PT. Less headache. No n/v/d/c. Able to eat not much appetite. Physical Exam Vital signs: Vital Signs 12/20/18 17:00 12/20/18 17:01 12/20/18 18:00 Temperature Pulse Rate 78 97 H 79 Respiratory Rate 20 20 16 Blood Pressure 156/94 H 138/91 H Pulse Oximetry 95 95 97 12/20/18 19:00 12/20/18 19:01 12/20/18 20:00 Temperature 98.2 F Pulse Rate 88 86 87 Respiratory Rate 20 20 15 Blood Pressure 156/91 H Pulse Oximetry 96 98 97 12/20/18 20:01 12/20/18 20:03 12/20/18 21:00 Temperature Pulse Rate 82 70 Respiratory Rate 20 30 H Blood Pressure 166/80 H Pulse Oximetry 96 98 97 12/20/18 21:01 12/20/18 22:00 12/20/18 22:01 Temperature Pulse Rate 70 62 62 Respiratory Rate 31 H 22 31 H Blood Pressure 145/84 H 128/69 Pulse Oximetry 97 96 96 12/20/18 23:00 12/20/18 23:01 12/21/18 00:00 Temperature 98.4 F Pulse Rate 72 73 72 Respiratory Rate 15 15 14 Blood Pressure 129/66 Pulse Oximetry 96 96 96 12/21/18 01:00 12/21/18 02:00 12/21/18 02:02 Temperature Pulse Rate 72 73 83 Respiratory Rate 15 19 24 Blood Pressure 128/83 Pulse Oximetry 96 95 12/21/18 03:00 12/21/18 04:00 12/21/18 05:00 Temperature 97.7 F Pulse Rate 75 83 71 Respiratory Rate 14 15 16 Blood Pressure 127/80 136/82 Pulse Oximetry 95 96 96 12/21/18 06:00 12/21/18 07:00 12/21/18 07:32 Temperature Pulse Rate 78 80 80 Respiratory Rate 14 29 H 30 H Blood Pressure 153/86 H Pulse Oximetry 95 95 96 12/21/18 07:44 12/21/18 08:00 12/21/18 09:00 Temperature 98.4 F Pulse Rate 97 H 71 Respiratory Rate 30 H 18 Blood Pressure Pulse Oximetry 96 97 95 12/21/18 10:00 Temperature Pulse Rate 98 H Respiratory Rate 23 Blood Pressure Pulse Oximetry 96 Intake & Output 12/20/18 12/21/18 12/21/18 18:59 06:59 18:59 Intake Total 1350 / 1350 Output Total 300 / 300 800 / 800 Balance 1050 / 1050 -800 / -800 Intake: IV 1000 / 1000 NS Inj 1,000 ML @ 70 mls/hr IV. 1000 / 1000 CONT .[id number] [facility] Rx#:[id number] Oral 350 / 350 Output: Urine 800 / 800 Emesis 300 / 300 Other: # Voids 4 Date of Last Bowel Movement 12/20/18 12/20/18 12/20/18 # Bowel Movements 1 Narrative: GENERAL: 68 yo female, well nourished, well developed patient appears in nad. CARDIOVASCULAR: Regular rate and rhythm. RESPIRATORY: No accessory muscle use. Clear to auscultation. Breath sounds equal bilaterally. GASTROINTESTINAL: Abdomen soft, non-tender, nondistended. Hepatic and splenic margins not palpable. MUSCULOSKELETAL: Extremities without clubbing, cyanosis, or edema. No obvious deformities. NEUROLOGICAL: Awake and alert. No obvious cranial nerve deficits. Motor grossly within normal limits except mild Left arm weakness. Normal speech. PSYCHIATRIC: Appropriate mood and affect; insight and judgment normal. Results Labs CBC & Chem 7: 12/21/18 11:45 12/19/18 16:20 Imaging Imaging: Impressions Head CT 12/20/18 18:00 CONCLUSION: 1. No evidence of acute hemorrhage. 2. Interval development of mild hypodensity with loss of ballesteros/white matter differentiation in the anterior right sylvian region, possibly an evolving infarction. . Assessment and Plan Plan Patient is a 68-year-old female with h/o dementia, who presents with left-sided numbness with last known well approximately 1-1-1/2 hours prior to arrival. NIH stroke scale on arrival was 3. Blood pressure was in the 160s over 80s. Noncontrast CT of the head was unremarkable. CTAs were also unremarkable. Neurology was consulted, Dr. Obando, who recommended TPA. Patient agreed and she was given TPA and at approximately 5 PM on reevaluation her symptoms had markedly improved. She is admitted for further evaluation and management. CVA. The patient presented with left arm weakness and left pronator drift. H/o dementia on namenda , restarted CT head and CTA neck unremarkable Dr Obando neuro recommended TPA, patient received TPA with marked improvement in symptoms thereafter Admit to the floor for close eval and observation Keep Normotensive normoglycemic Monitor on tele Check a1c, lipid profile Started ASA and statin per neuro recommendations Restart ilan meds Headache tylenol prn, avoid NSAIDS PT?OT?ST. Patient passed swallow eval DVT ppx scd/teds, received TPA Discussed with the patient, family at bedside, nurse Poss DC tomorrow if cleared by neuro OK to transfer to neuro floor Progress Note: Quality VTE Deep Vein Thrombosis/Pulmonary Embolism Present on Admission: No
--- NOTE | 2018-12-21 16:25 | P.DCO ---
Physical Therapy Order: Evaluate and treat Occupational Therapy Order: Evaluate and treat Home Health Nursing Order: Medical education, Signs/symptoms of disease process, Medication education-adverse effect and Nursing assessment with vital signs Case Management Consult Case Management Consult-Home Health: Yes I have seen patient Tanvi Lozano on 12/21/18. My clinical findings support the need for the requested home health care services because: Limited mobility due to disease progression, Impaired cognition/judgement and High risk of falls I certify that my clinical findings support that this patient is homebound because: Post-op weakness, Impaired cognitive ability/safety and Unsteady gait/balance
[2018-12-22] MEDS: Aspirin 325 MG Tablet PO SCH (08:08)
[2018-12-22] MEDS: Acetaminophen 325 MG Tablet PO PRN (08:08)
--- NOTE | 2018-12-22 11:43 | P.PNNEU ---
Subjective Subjective Comments: Cross cover neurology. No headache chest pain dyspnea Active Medications: Active Medications Acetaminophen (Tylenol) 650 mg PO Q4H PRN PRN Reason: fever/headache Last Admin: 12/22/18 08:08 Dose: 650 mg Aspirin (Aspirin) 325 mg PO DAILY [facility] Last Admin: 12/22/18 08:08 Dose: 325 mg Dextrose (D50w Vial) 50 ml IV.PUSH UNSCH PRN PRN Reason: PER HYPOGLYCEMIA PROTOCOL Enalaprilat (Vasotec Inj) 2.5 mg IV.PUSH Q6H PRN PRN Reason: SBP>180, DBP>110 Glucagon (Glucagon Inj) 1 mg OTHER UNSCH PRN PRN Reason: for Hypoglycemia Protocol Memantine (Namenda) 10 mg PO BID [facility] Last Admin: 12/22/18 08:09 Dose: 10 mg Pravastatin Sodium (Pravachol) 40 mg PO HS [facility] Last Admin: 12/21/18 20:01 Dose: 40 mg Sodium Chloride (Ns Flush) 2 ml IV.FLUSH PRN PRN PRN Reason: FLUSH AFTER USING IV ACCESS Sodium Chloride (Ns Flush) 2 ml IV.FLUSH BID [facility] Last Admin: 12/21/18 20:00 Dose: 2 ml Sodium Chloride (Ns Flush) 2 ml IV.FLUSH PRN PRN PRN Reason: FLUSH AFTER USING IV ACCESS Allergies/Adverse Reactions: Allergies Allergy/AdvReac Type Severity Reaction Status Date / Time No Known Allergies Allergy Verified 12/19/18 16:19 Review of Systems All other systems reviewed negative except as stated in HPI Physical Exam Vital signs: Vital Signs 12/21/18 11:43 12/21/18 12:00 12/21/18 12:08 Temperature 98.0 F Pulse Rate 88 85 81 Respiratory Rate 25 H 38 H 33 H Blood Pressure 128/75 122/72 Pulse Oximetry 96 94 L 96 12/21/18 12:10 12/21/18 12:15 12/21/18 13:00 Temperature Pulse Rate 83 92 H Respiratory Rate 35 H 20 Blood Pressure 117/71 Pulse Oximetry 95 96 12/21/18 14:04 12/21/18 15:00 12/21/18 16:00 Temperature 98.1 F Pulse Rate 103 H 82 78 Respiratory Rate 27 H 21 Blood Pressure Pulse Oximetry 97 95 12/21/18 16:20 12/21/18 17:00 12/21/18 18:09 Temperature Pulse Rate 79 87 87 Respiratory Rate 40 H 20 20 Blood Pressure 116/70 Pulse Oximetry 95 96 96 12/21/18 19:00 12/21/18 20:00 12/21/18 20:01 Temperature 98.2 F Pulse Rate 81 78 Respiratory Rate 16 16 16 Blood Pressure 123/77 Pulse Oximetry 96 97 12/21/18 20:04 12/21/18 20:11 12/21/18 21:00 Temperature Pulse Rate 77 69 Respiratory Rate 16 16 Blood Pressure 123/77 147/79 H Pulse Oximetry 97 96 96 12/21/18 22:00 12/21/18 23:00 12/21/18 23:11 Temperature 97.8 F 97.9 F Pulse Rate 70 70 73 Respiratory Rate 20 16 16 Blood Pressure 147/88 H Pulse Oximetry 96 95 95 12/22/18 00:00 12/22/18 00:15 12/22/18 01:00 Temperature Pulse Rate 68 68 68 Respiratory Rate 14 16 Blood Pressure 144/80 H Pulse Oximetry 95 95 12/22/18 02:17 12/22/18 02:22 12/22/18 03:00 Temperature Pulse Rate 78 79 68 Respiratory Rate 14 14 13 Blood Pressure 168/91 H 161/90 H 161/82 H Pulse Oximetry 95 95 94 L 12/22/18 03:56 12/22/18 04:00 12/22/18 05:00 Temperature 98.1 F Pulse Rate 68 73 71 Respiratory Rate 14 18 13 Blood Pressure 145/91 H 175/83 H 155/89 H Pulse Oximetry 95 96 95 12/22/18 06:00 12/22/18 07:00 12/22/18 07:19 Temperature Pulse Rate 65 77 76 Respiratory Rate 17 24 17 Blood Pressure 163/85 H 139/83 Pulse Oximetry 95 97 96 12/22/18 08:00 12/22/18 08:11 12/22/18 09:00 Temperature 98 F Pulse Rate 78 93 H 69 Respiratory Rate 46 H 35 H 31 H Blood Pressure 174/90 H 168/91 H 159/87 H Pulse Oximetry 97 97 94 L Intake & Output 12/21/18 12/22/18 12/22/18 18:59 06:59 18:59 Intake Total 720 / 720 650 / 650 Balance 720 / 720 650 / 650 Intake: Oral 720 / 720 650 / 650 Other: # Voids 5 2 Date of Last Bowel Movement 12/20/18 12/20/18 Narrative: Awake alert, in the bathroom brushing her teeth no acute distress standing on her legs - Constitutional no acute distress - Routine HEENT Exam Head: Present: normocephalic Eye: Present: EOMI Objective Laboratory Results - last 24 hr 12/21/18 12/21/18 11:45 22:31 WBC 7.4 RBC 4.29 Hgb 14.1 Hct 41.2 MCV 96.2 MCH 32.8 MCHC 34.1 RDW 13.4 Plt Count 336 MPV 7.7 Neut % (Auto) 69.7 Lymph % (Auto) 22.5 [place] % (Auto) 6.6 Eos % (Auto) 0.6 Baso % (Auto) 0.6 Neut # (Auto) 5.1 Lymph # (Auto) 1.7 [place] # (Auto) 0.5 Eos # (Auto) 0.0 Baso # (Auto) 0.0 WBC Differential . 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
--- NOTE | 2018-12-22 13:34 | P.DS ---
DS: Providers Date of admission: 12/19/18 17:25 Primary care physician: No Primary Care Physician Consults: 12/19/18 17:26 Consult to Neurology Routine Consulting Provider: Josesito Sutton Nursing Manager:: Krishan Obando Reason for Consultation: Ischemic Stroke Notified:: Service Spoke with:: JESÚS Date Notified:: 12/19/18 Time Notified:: 17:39 Ordering Provider: MARTÍN Consult to Rehab Medicine Routine Consulting Provider: Yuliet Coto Reason for Consultation: Stroke patient, assist with Rehab recommendations Notified:: Service Spoke with:: JESÚS Date Notified:: 12/19/18 Time Notified:: 17:37 Ordering Provider: MARTÍN 12/21/18 11:34 HUB Only Consult Order Routine Consulting Provider: Alhaji Mane Brief History from admission: Patient is a 68-year-old female who self reports a possible history of dementia and no other medical problems who presents with complaint of left extremity weakness. She laid down for nap at approximately 3: 00 and was normal. When she woke up later she noticed that her left upper extremity was weak and called EMS. EMS states that her arm on the left side is not acting the same as the other side and thus they called a stroke alert. Patient denies any changes in vision, speech, swallowing, numbness. at bedside also witnessed episode of weakness and says patient was not able to move her left hand at home. Patient came as stroke alert. Neurology consulted. Patient had TPA administered. Improved significantly after TPA. Normal speech and slight weakness and mild pronator drift on left hand. DS: Diagnosis Discharge Diagnosis (1) Acute ischemic stroke: Status: Acute DS: Summary Patient is a 68-year-old female with h/o dementia, who presents with left-sided numbness with last known well approximately 1-1-1/2 hours prior to arrival. NIH stroke scale on arrival was 3. Blood pressure was in the 160s over 80s. Noncontrast CT of the head was unremarkable. CTAs were also unremarkable. Neurology was consulted, Dr. Obando, who recommended TPA. Patient agreed and she was given TPA and at approximately 5 PM on reevaluation her symptoms had markedly improved. She is admitted for further evaluation and management. CVA. The patient presented with left arm weakness and left pronator drift. H/o dementia on namenda , restarted CT head and CTA neck unremarkable Dr Obando neuro recommended TPA, patient received TPA with marked improvement in symptoms thereafter Keep Normotensive normoglycemic Monitor on tele a1c, lipid profile reviewed Started ASA and statin per neuro recommendations Restart ilan meds Headache tylenol prn, avoid NSAIDS. No imprpved with tylenol, added tramadol responding well. PT/OT/ST. Patient passed swallow eval Patient improved DC home with home health in stable condition to follow up as OP with PCP and consultants [facility] Prescription Drug Monitoring Database has been queried and verified prior to prescribing the controlled substance. Acute pain exception. This patient has normal, predicted, physiological, and time limited response to an adverse mechanical stimulus associated with surgery, trauma, or acute illness as described in my notes. There is a lack of alternative treatment options other than to include the prescribed narcotic treatment for this condition. Time Spent with Patient Total time spent providing and/or coordinating discharge services: > 30 min Quality: VTE Deep Vein Thrombosis/Pulmonary Embolism Present on Admission: No Exam Narrative Exam Narrative: GENERAL: 68 yo female, well nourished, well developed patient appears in nad. CARDIOVASCULAR: Regular rate and rhythm. RESPIRATORY: No accessory muscle use. Clear to auscultation. Breath sounds equal bilaterally. GASTROINTESTINAL: Abdomen soft, non-tender, nondistended. Hepatic and splenic margins not palpable. MUSCULOSKELETAL: Extremities without clubbing, cyanosis, or edema. No obvious deformities. NEUROLOGICAL: Awake and alert. No obvious cranial nerve deficits. Motor grossly within normal limits except mild Left arm weakness. Normal speech. PSYCHIATRIC: Appropriate mood and affect; insight and judgment normal. Results Labs on day of discharge: Labs from last 24 hours 12/21/18 22:31 POC Glucose 92 Impressions ITS Impressions Head MRI 12/19/18 00:00 CONCLUSION: 1. Small acute lacunar infarction involving the centrum semiovale bowel on the right. Chest X-Ray 12/19/18 16:19 CONCLUSION: No acute cardiopulmonary disease identified. Head CTA 12/19/18 16:27 CONCLUSION: 1. Unremarkable head CTA exam. Specifically, no evidence for large vessel occlusion. Findings were called by Dr. Chisholm to Dr. Obando at 1648 PM. Neck CTA 12/19/18 16:27 CONCLUSION: CTA of the neck within normal limits. Head CT 12/20/18 18:00 CONCLUSION: 1. No evidence of acute hemorrhage. 2. Interval development of mild hypodensity with loss of ballesteros/white matter differentiation in the anterior right sylvian region, possibly an evolving infarction. . Discharge Plan Discharge Disposition Patient Disposition: W/Home Health Service Discharge Condition Condition: Fair Discharge Order Discharge Orders: Discharge Order (Routine); Ordered 12/22/18 Ordered By: Genoveva Farrell Discharge Details Anticipated Discharge Date: 12/22/18 Discharge Comment: DC when cleared by neuro and arrangements are done Physicians Team Primary Care Provider: Primary Care Umu Lantigua Attending Provider: Genoveva Farrell Other Providers: Josesito Sutton ; Yuliet Coto ; Alhaji Mane Rxs /Orders / Referrals /Forms Prescriptions: New aspirin 325 mg Tablet 325 mg PO DAILY Qty: 30 RF: 0 pravastatin 40 mg Tablet 40 mg PO HS Qty: 30 RF: 0 Continue memantine 10 MG tablet 10 mg PO BID RF: 0 Referrals: Josesito Sutton MD [Physician] - See Instructions ( Please call the physician 's office to book the appointment to be seen within [2 -3 weeks ].) Primary Care Umu Lantigua [Primary Care Provider] - See Instructions ( Please call the physician's office to book the appointment to be seen within [2-3 days with ypur PCP ].) Status ED Status: Left Department
== END 2018-12-22 13:45 | disposition home health service (06) | DRG 62 ==
LOC: NEPE 16:15 → NEDA 17:25 → N03 18:40
PROVIDERS: ADMIT Hospitalist; ATTEND Hospitalist
CPT/HCPCS: 70450; 70496; 70498; 70553; 71010; 71045; 80048; 80061; 81001; 82435; 82550; 82565; 82947; 82948; 82962; 83036; 84132; 84295; 84484; 84520; 85025; 85610; 85730; 90765; 90775; 93005; 93306; 96365; 96375; 97110; 97116; 97163; 97167; 97535; 99291; A9585; J2997; J7030; Q9967